=== PATIENT | female | born 1950 | race Caucasian/White ===

== ENCOUNTER → 2016-11-20 | Outpatient (CLI) | payer MEDICARE, BC ==
[~2016-11-20] MED LIST: BACTRIM DS TABL1 TA1 PO; CYANOCOBAL1000 MCG/M INJ; DIOVAN HCT 160-1 TAB PO; HYDROCHLOROTH12.5 M1 PO; INDOMETHACIN50 MG PO; OMEPRAZOLE20 M2 PO; PAROXETINE HCL20 M1 PO; PEXEVA20 MG PO; PHENERGAN SUPP25 MG PR; PHENERGAN25 M1 PO; POTASS PO; PRILOSEC20 MG PO; VALSARTAN320 MG PO; VESICARE PO; VITAMIN D5000 UNIT PO; ZETIA PO; ZYRTEC PO; ZYRTEC10 M2 PO; vitamin d3 PO
== END | disposition home or self-care (01) ==
LOC: CLAB 09:34
DX: R53.83 Other fatigue (principal)
CPT/HCPCS: 36415; 82607